=== PATIENT | male | born 1950 | race Caucasian/White ===

== ENCOUNTER → 2018-03-27 | Outpatient (CLI) | payer BC ==
[~2018-03-27] MED LIST: ADVIL200 MG PO; COZAAR 25MG25 MG/TAB PO; FLOMAX; FLOMAX 0.40.4 MG/CAP PO; FORTAMET500 MG PO; GLUCOPHAGE1000 MG PO; LIPITOR 10MG10 MG PO; NORVASC2.5 MG PO
== END ==
LOC: COL.RAD 12:58
DX: N20.2 Calculus of kidney with calculus of ureter (principal); Z87.442 Personal history of urinary calculi

== ENCOUNTER 2018-03-28 15:17 | Day surgery (SDC) | payer BC ==
[~2018-03-28] VITALS: Ht 185.4 cm; Wt 99.0 kg
[2018-03-28] VITALS (8 sets, daily range): BP systolic 118–165; BP diastolic 63–92; PULSE 83–111; TEMP 97.5–98.1
[~2018-03-28 15:17] MED LIST changes: -COZAAR 25MG25 MG/TAB PO; -FLOMAX 0.40.4 MG/CAP PO; -GLUCOPHAGE1000 MG PO; -LIPITOR 10MG10 MG PO; -NORVASC2.5 MG PO
[2018-03-28] MEDS ORDERED: GLUCOPHAGE1000 MG PO (16:51)
[2018-03-28] MEDS ORDERED: COZAAR 25MG25 MG/TAB PO (16:52)
[2018-03-28] MEDS ORDERED: LIPITOR 10MG10 MG PO (16:52)
[2018-03-28] MEDS ORDERED: NORVASC2.5 MG PO (16:52)
[2018-03-28] MEDS ORDERED: FLOMAX 0.40.4 MG/CAP PO (16:53)
== END 2018-03-28 23:50 | disposition home or self-care (01) ==
LOC: SDCO 15:17 → MEDICAL 23:28 → SDCO 23:50
DX: N20.2 Calculus of kidney with calculus of ureter (principal); E11.9 Type 2 diabetes mellitus without complications; I10 Essential (primary) hypertension; Z79.84 Long term (current) use of oral hypoglycemic drugs; Z83.3 Family history of diabetes mellitus
CPT/HCPCS: OP; C1769; C1894; C2617; J0690; J1100; J1885; J2405; J2704; J3010; J7120; Q9967